=== PATIENT | female | born 1965 | race Caucasian/White ===

== ENCOUNTER 2017-03-03 07:58 | Day surgery (SDC) | payer OTHER ==
[2017-03-03] MEDS ORDERED: PROPOFOL 500 MG/50 ML EMU IV ONE (08:03)
[2017-03-03 09:20] VITALS: O2SAT 99
[2017-03-03 09:39] VITALS: BP 115/78; PULSE 84; RESP 20; TEMP 97.4
== END 2017-03-03 09:53 | disposition home or self-care (01) ==
LOC: SURG 07:58
PROVIDERS: ATTEND Surgery
DX: Z12.11 Encounter for screening for malignant neoplasm of colon (principal); Z80.0 Family history of malignant neoplasm of digestive organs
CPT/HCPCS: 45378; J2704